=== PATIENT | female | born 1955 | race Caucasian/White ===

== ENCOUNTER 2016-08-11 07:23 | Inpatient (IN) | payer BC ==
[2016-08-03 18:09] LABS: HEMATOCRIT 40.2 % (36.0-48.0); HEMOGLOBIN 12.7 g/dL (12.0-16.0)
--- NOTE | ~2016-08-11 | DS ---
Discharge Summary [facility] [address] [place]. [address] NAME: ASHLEIGH CERVANTES : 53 STATUS : DIS IN PAT#: [id number] AGE: 61 ADM/REG DATE : 08/11/16 MR#: [id number] REPORT SERV DATE: 08/28/16 DICTATED BY: MASON THAPA II DATE: 08/27/16 REPORT STATUS : Draft TRANSCRIBED BY: JHONNY DATE: 08/27/16 Data Collection from hospitalization DISCHARGE DIAGNOSES: 1. Degenerative scoliosis with severe coronal collapse L2-3 and L3-4. 2. Stenosis multilevel. 3. L5-S1 pars defect with spondylolisthesis. 4. Gastroesophageal reflux disease. 5. History of seasonal allergic conjunctivitis. CONSULTATIONS: None. PROCEDURES PERFORMED: 1. Lumbar laminectomy and facetectomy L2-3, L3-4, L4-5, and L5-S1. 2. Lumbar interbody arthrodesis, L2-3, L3-4, and L4-5. 3. Application of prosthetic devices L2-3, L3-4, L4-5. 4. Posterolateral arthrodesis, L2-3, L3-4, L4-5 L5-S1. 5. Posterior segmental instrumentation, L2 to S1 (5 segments). 6. Use of local autograft, allograft substitute, and bone morphogenetic protein. 7. Use of stereotactic spinal imaging and microscope; all 08/11/2016. PATHOLOGY: Bone and soft tissue; lumbar spine excision, cartilage, bone, and skeletal muscle. MEDICATIONS: CoQ10 200 mg every morning, Estrace 0.5 mg every morning, Prozac 20 mg every evening, Neurontin 1-2 tablets every 6-8 hours as needed, Atrovent 2 sprays each nostril every morning, Zyrtec 10 mg every morning, CellCept 1 g every evening, AcipHex 20 mg every morning, Zocor 40 mg at bedtime, vitamin E 400 units daily, Topicort spray apply as needed, Temovate 30 g as needed, Robaxin 500 mg every 6-8 hours as needed, and Oxycodone 10 mg one or two every 4-6 hours as needed. CONDITION AT DISCHARGE: Upon discharge, she did appear to be doing well and had no complaints. DISPOSITION: She had been discharged home to continue a regular diet with activity as discussed. She is to follow up with ri in the office on 09/05/2016. HOSPITAL COURSE: This 61-year-old female had been complaining of L-spine related symptoms. Her symptoms were located in the low back on the left side with sharp pain with radiation into the left lower extremity to her knee with associated burning, numbness, and tingling. She was last seen in the office 3 weeks prior to admission and was status post MRI of the lumbar spine on 07/05/2016. When asked about the severity level of her symptoms, she reported a pain level of 4 on a 0-10 scale. She reported the pain and symptoms had remained unchanged since the last visit. She did admit to the following factors which modified her symptoms; bending. sitting on hard seats and standing on hard surfaces worsened her pain and symptoms. Physical therapy, medication, and rest decreases severity of her pain and symptoms. At the time of admission, she had been taking [place], Neurontin, and Robaxin to treat her pain and symptoms. She was admitted for surgery and further treatment. Upon Discharge [address] [address] NAME: ASHLEIGH CERVANTES : 53 STATUS : DIS IN PAT#: [id number] AGE: 61 ADM/REG DATE : 08/11/16 MR#: [id number] REPORT SERV DATE: 08/28/16 DICTATED BY: MASON THAPA II DATE: 08/27/16 REPORT STATUS : Draft TRANSCRIBED BY: JHONNY DATE: 08/27/16 admission to the hospital, she had been taken to the operating room where she did undergo the above procedure. She tolerated this well and was transferred to the recovery room. On postop day #1, she did appear to be doing well and had been evaluated by Physical Therapy. She was afebrile, and her vital signs were stable. She was encouraged to ambulate. On postop day #2, she did continue to do well and had no leg pain noted. She was continued on her current medications. On postop day #3, she did remain in stable condition, and discharge planning was begun. As she continued to do well, she was then discharged on 08/15/2016 with the above instructions. Information collected by: Charlene CastelanH.I.T. I submit the above information as my discharge summary. RW/MODL Mason Thapa II, M.D. / [id number] CC: Patrick Clark II, M.D.
--- NOTE | ~2016-08-11 | OP ---
Record Of Operation [facility] [address] [place]. [address] NAME: ASHLEIGH CERVANTES : 53 STATUS : ADM IN PAT#: [id number] AGE: 61 ADM/REG DATE : 08/11/16 MR#: [id number] REPORT SERV DATE: 08/12/16 DICTATED BY: MASON THAPA II DATE: 08/12/16 REPORT STATUS : Draft TRANSCRIBED BY: MODL DATE: 08/12/16 DATE OF PROCEDURE: 08/11/2016 PREOPERATIVE DIAGNOSES: 1. Degenerative scoliosis with severe coronal collapse, L2-3 and L3-4. 2. Stenosis, multilevel. POSTOPERATIVE DIAGNOSES: 1. Degenerative scoliosis with severe coronal collapse, L2-3 and L3-4. 2. Stenosis, multilevel. 3. L5-S1 pars defect with spondylolisthesis. PROCEDURES: 1. Lumbar laminectomy and facetectomy, L2-3, L3-4, L4-5 and L5-S1. 2. Lumbar interbody arthrodesis L2-3, L3-4, and L4-5. 3. Application of prosthetic devices, L2-3, L3-4, L4-5. 4. Posterolateral arthrodesis, L2-3, L3-4, L4-5, L5-S1. 5. Posterior segmental instrumentation, L2 to S1 (5 segments). 6. Use of local autograft, allograft substitute, and bone morphogenic protein. 7. Use of stereotactic spinal imaging and microscope. SURGEON: Mason Thapa M.D. FLUIDS REPLACED: 2300 mL LR. ESTIMATED BLOOD LOSS: 200 mL. DRAINS: One. COMPLICATIONS: None. ANTIBIOTIC: Preoperatively. IMPLANTS: Alphatec. COMPLICATIONS: None. PREOPERATIVE HISTORY: This is a very friendly 61-year-old female, who reports significant pain in the left buttock radiating into the left thigh. She has some on the right, but more severely on the left. She does have some back pain, but has leg pain greater than back pain. We discussed the pros and cons of surgery. We discussed her significant coronal deformity and collapse. We also discussed her degenerative scoliosis. We had noted on one of our office films a mild spondylolisthesis. Advanced imaging did not identify a pars defect or any instability. We discussed the risks and the benefits of surgery. She was aware of the pros and cons. Specifically we discussed the rates of success versus failure of the surgery to decrease back pain and leg pain respectively. Record Of Operation [facility] [address] [place]. [address] NAME: ASHLEIGH CERVANTES : 53 STATUS : ADM IN PAT#: [id number] AGE: 61 ADM/REG DATE : 08/11/16 MR#: [id number] REPORT SERV DATE: 08/12/16 DICTATED BY: MASON THAPA II DATE: 08/12/16 REPORT STATUS : Draft TRANSCRIBED BY: JHONNY DATE: 08/12/16 DESCRIPTION OF PROCEDURE: After informed consent was obtained, the patient was brought to the operating room at her request and general anesthesia achieved. She was placed in the prone position and the back was prepped and draped in a sterile fashion. The stereotactic spinal pin was placed into the right iliac crest followed by completion of the intraoperative CT scan. Stereotactic guidance was then used throughout the case. Next a left paramedian incision was then performed. The dissection was then performed through a Bebeto type approach. We then dissected down to the transverse processes and the facets. Using stereotactic guidance and assessing and evaluating the location, I did identify a pars defect of L5 bilaterally. When dissecting around the L4-5 area I came across abnormal motion of the pars fragments. At this point, this caused us to reinspect her office x-rays. At this point, I felt that the spondylolisthesis was more significant and unstable than previously thought. Given the obvious macro motion at this level I felt that it was prudent to include this level in the fusion. At this point, the facetectomy was now performed at L2-3. This patient had multilevel significant stenosis. The stenosis was now alleviated at L2-3 by removal of pars and both facets on the left. The central canal was decompressed under the microscope. Under microscopic visualization, we carried out decompression of the L2 and L3 nerve roots. Next, the interbody arthrodesis was initiated at L2-3 with diskectomy and endplate preparation. Overall, her bone quality was reasonable, but overall mildly soft, but typical of early 59-year-old female. The endplates were prepared and the area irrigated. Punctate bleeding bone was identified along the endplates of L2 and L3. Local autograft, allograft substitute, and a very small amount of bone morphogenic protein were placed into the anterior column. The prosthetic device was then chosen and placed at L2-L3. Next, the L3-4 facetectomy was now performed. Again, this was done so as to decompress the canal and foramen. Both the L3 and L4 nerve roots exhibited significant compression. We then removed the compression from the canal, lateral recess, and foramen. The interbody arthrodesis was then initiated with diskectomy and endplate preparation. The felicia and the pituitary rongeurs were used extensively to remove cartilage and disk from the space. The area was now irrigated followed by placement of the prosthetic device into L3 and L4. Local autograft, allograft substitute, and bone morphogenic protein were then placed into the anterior column. Next, a similar procedure was performed at L4-L5. The lumbar laminectomy and facetectomy was performed. This allowed decompression of the canal, foramen, and lateral recess. Again, we found extensive stenosis at each of these 3 levels. The interbody arthrodesis was initiated with diskectomy at L4-5. The disk was removed and endplates prepared in a similar manner. Punctate bleeding bone was identified followed by placement of the prosthetic device. Allograft substitute and bone morphogenic protein were then placed into the anterior column. At this point following completion of the preparation of the interbody arthrodesis and the application of the device at L4-5, we then moved down to L5-S1. Record Of Operation [facility] [address] [facility] [place]. [address] NAME: ASHLEIGH CERVANTES : 53 STATUS : ADM IN PAT#: [id number] AGE: 61 ADM/REG DATE : 08/11/16 MR#: [id number] REPORT SERV DATE: 08/12/16 DICTATED BY: MASON THAPA II DATE: 08/12/16 REPORT STATUS : Draft TRANSCRIBED BY: MODL DATE: 08/12/16 At L5-S1 we then removed a loose pars fragment. The pedicle to pedicle decompression was achieved. There was significant compression surprisingly of the L5 nerve root when compared to the MRI. Nevertheless, the L5 nerve root appeared to be significantly compressed by the fibrous tissue originating from the pars defect. The L5 nerve root was then well decompressed. At this point, the segmental instrumentation was applied. Pedicle screws were placed from L2 to S1 on the left side. Percutaneous screws were placed on the right with a screw into L2, L4, and S1. A repeat CT scan confirmed acceptable placement of the implants. The rods were then assembled and final tightening performed. Please note, the irrigation had been performed throughout the case. Decortication was now performed of the transverse processes at L2, L3, L4, L5 and the sacral ala. A copious amount of local autograft was placed along these decorticated surfaces along with allograft substitute and bone morphogenic protein. A deep drain was placed followed by standard closure and the patient was then extubated and transferred to PACU in stable condition. I spoke with her and family extensively postoperatively regarding the surgery itself as well as again the expected hospitalization and outcomes, and answered all their questions appropriately. TAWANA/HELENL Mason Thapa II, M.D. / [id number] CC: Patrick Clark II, M.D.
[~2016-08-11 07:23] MED LIST: ACIPHEX PO; ADVIL PO; ATRONASAL6 NAS; CALTRA600D PO; CELLCEPT5 PO; CO Q-10200 MG PO; ESTRACE0.5 MG PO; METHOC500B PO; NEUR100 PO; NORCO1 TA1 PO; PROZAC PO; TEMOVATE CREAM30 GM TOP; TOPICORT 0.25% TOP; VIT D PO; VITE PO; ZOCOR40 PO; ZYRTEC ALLGY10 MG PO
[2016-08-11 09:23] LABS: BUN (BLOOD UREA NITROGEN) 12 MG/DL (6-23); CALCIUM, SERUM 8.9 MG/DL (8.5-10.4); CHLORIDE, SERUM 108 MMOL/L (96-112); CO2 (CARBON DIOXIDE) 27 MMOL/L (24-34); CREATININE 0.75 MG/DL (0.55-1.02); GFR AFRICAN AMERICAN 99 ML/MIN (>=60); GFR NON AFRICAN AMERICAN 85 ML/MIN (>=60); GLUCOSE, SERUM 95 MG/DL (60-99); POTASSIUM, SERUM 4.5 MMOL/L (3.5-5.3); SODIUM, SERUM 140 MMOL/L (135-148)
[2016-08-15] MEDS ORDERED: OXYCOD PO (12:32)
== END 2016-08-15 14:50 | disposition home or self-care (01) | DRG 458 ==
LOC: SDC/OF 07:23 → 3SO 19:16
PROVIDERS: Orthopaedic Surgery
PROC: 0SG10AJ Fusion of 2 or more Lumbar Vertebral Joints with Interbody Fusion Device, Posterior Approach, Anterior Column, Open Approach (ICD-10-PCS; principal; 2016-08-11 09:15)
PROC: 0SG30AJ Fusion of Lumbosacral Joint with Interbody Fusion Device, Posterior Approach, Anterior Column, Open Approach (ICD-10-PCS; 2016-08-11 09:15)
PROC: 0ST20ZZ Resection of Lumbar Vertebral Disc, Open Approach (ICD-10-PCS; 2016-08-11 09:15)
PROC: 4A11X4G Monitoring of Peripheral Nervous Electrical Activity, Intraoperative, External Approach (ICD-10-PCS; 2016-08-11 09:15)
DX: M41.86 Other forms of scoliosis, lumbar region (principal); K21.9 Gastro-esophageal reflux disease without esophagitis; M48.47XA Fatigue fracture of vertebra, lumbosacral region, initial encounter for fracture; M48.06 Spinal stenosis, lumbar region; M43.17 Spondylolisthesis, lumbosacral region; Z90.710 Acquired absence of both cervix and uterus; Z80.9 Family history of malignant neoplasm, unspecified
CPT/HCPCS: 36415; 80048; 82962; 85014; 85018; 87641; 88304; 88311; 93005; 97110-GP; 97116-GP; 97161-GP; A9270-GY; C1713; C1769; J0690; J1170; J2250; J2405; J2710; J3010